=== PATIENT | female | born 1960 | race Caucasian/White ===

== ENCOUNTER 2018-02-06 10:30 | Emergency (ER) | payer OTHER ==
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
[2018-02-06] MEDS ORDERED: TDAP ADULT 0.5 ML INJ (BOOSTRIX) IM ONE (11:23)
[2018-02-06] MEDS ORDERED: LET GEL TOPICAL 1 EA SYR TP ONE ×3 (11:23→12:14)
[2018-02-06] MEDS ORDERED: CYCLOBENZAPRINE 10 MG TAB PO ONE (11:24)
[2018-02-06] MEDS ORDERED: OXYCODONE/APAP 5/325 TAB PO ONE (12:38)
[2018-02-06] MEDS ORDERED: ACETAMINOPHEN 500 MG TAB PO ONE (12:48)
[2018-02-06] MEDS ORDERED: IBUPROFEN 600 MG TAB PO ONE (12:49)
[2018-02-06 14:13] VITALS: BP 102/67
== END 2018-02-06 14:13 | disposition home or self-care (01) ==
PROC: 0HQDXZZ Repair Right Lower Arm Skin, External Approach (ICD-10-PCS; principal; 2018-02-06)
DX: S43.421A Sprain of right rotator cuff capsule, initial encounter (principal); S51.011A Laceration without foreign body of right elbow, initial encounter; T14.8XXA Other injury of unspecified body region, initial encounter; Z85.3 Personal history of malignant neoplasm of breast; Z23 Encounter for immunization; V18.0XXA Pedal cycle driver injured in noncollision transport accident in nontraffic accident, initial encounter; Y92.410 Unspecified street and highway as the place of occurrence of the external cause; Y99.8 Other external cause status; Y93.55 Activity, bike riding

== ENCOUNTER → 2018-02-16 | Outpatient (CLI) | payer OTHER | LOC: BMCIMAGING 16:25 | PROVIDERS: ATTEND Orthopaedic Surgery Hand Surgery | DX: M25.832 Other specified joint disorders, left wrist (principal); M18.12 Unilateral primary osteoarthritis of first carpometacarpal joint, left hand ==

== ENCOUNTER → 2018-02-27 | Outpatient (CLI) | payer OTHER | LOC: FIMAGING 18:55 | PROVIDERS: ATTEND Orthopaedic Surgery Hand Surgery | DX: S46.011A Strain of muscle(s) and tendon(s) of the rotator cuff of right shoulder, initial encounter (principal); S46.191A Other injury of muscle, fascia and tendon of long head of biceps, right arm, initial encounter; S43.491A Other sprain of right shoulder joint, initial encounter; M24.011 Loose body in right shoulder; M19.011 Primary osteoarthritis, right shoulder ==

== ENCOUNTER → 2018-05-31 | Outpatient (CLI) | payer OTHER | LOC: BMCIMAGING 15:49 | PROVIDERS: ATTEND Podiatrist Foot & Ankle Surgery | DX: M79.672 Pain in left foot (principal) ==

== ENCOUNTER → 2018-06-13 | Outpatient (CLI) | payer OTHER | LOC: FIMAGING 08:54 | PROVIDERS: ATTEND Orthopaedic Surgery | DX: G57.62 Lesion of plantar nerve, left lower limb (principal) ==